=== PATIENT | male | born 1950 | race Caucasian/White ===

== ENCOUNTER 2020-03-16 11:36 | Inpatient (IN) ==
[2020-03-16] MEDS ORDERED: Dextrose Gel 15 GM/37.5 ML TUBE PO PRN ×2 (15:40)
[2020-03-16] MEDS ORDERED: D5% in Water 1,000 ML IVC PRN (15:40)
[2020-03-16] MEDS ORDERED: *HR* Dextrose 50 % in Water (Vial) 50 ML VIAL IVP PRN (15:40)
[2020-03-16] MEDS: Insulin LISPRO 300 UNITS/3 ML VIAL SQ SCH ×2 (17:20→21:47)
[2020-03-16] MEDS: *HR* OxyCODONE Immed Rel 5 MG TABLET PO PRN (17:27)
[2020-03-16] MEDS: Gabapentin 300 MG CAPSULE PO SCH (21:46)
[2020-03-16] MEDS: Nicotine 14 MG PATCH.TD24 TD SCH (21:48)
[2020-03-16] MEDS: *HR* Metformin 500 MG TABLET PO SCH (21:49)
[2020-03-16] MEDS: Budesonide/Formoterol 80/4.5 1 PUFF INH IH SCH (22:24)
[2020-03-17 05:25] LABS: Basophils % 0.2 %; Eosinophils # 0.1 K/mcL (0.0-0.6); Eosinophils % 0.4 %; Hemoglobin 8.8 g/dL (12.9-16.9); Immature Granulocytes % 0.4 % (0-4); Lymphocytes # 2.1 K/mcL (0.6-4.6); Lymphocytes % 13.7 %; Mean Corpuscular HGB Conc 33.8 g/dL (31.6-35.5); Mean Corpuscular Hemoglobin 30.8 pg (28.0-33.3); Mean Corpuscular Volume 90.9 fL (83.0-100.0); Mean Platelet Volume 9.6 fL (9.4-12.4); Monocytes # 1.2 K/mcL (0.0-1.3); Monocytes % 7.7 %; Neutrophils # 12.1 K/mcL (1.6-8.9); Platelet Count 240 K/mcL (140-400); Red Blood Count 2.86 M/mcL (4.19-5.50); Red Cell Distribution Width 14.9 % (11.5-14.5); Segmented Neutrophils % 77.6 %; White Blood Count 15.6 K/mcL (4.3-11.1)
[2020-03-17 05:44] LABS: BUN/Creatinine Ratio 28 (6-26); Blood Urea Nitrogen 18 mg/dL (8-23); Carbon Dioxide 32 mEq/L (23-29); Chloride 98 mEq/L (98-107); Glucose 234 mg/dL (70-105); Osmolality,Calculated 287 (280-300); Potassium 4.2 mEq/L (3.5-5.1); Sodium 134 mEq/L (136-145); eGFR For African Americans > 60 (> 60); eGFR For Non-African Americans > 60 (> 60)
[2020-03-17] MEDS: Nicotine 14 MG PATCH.TD24 TD SCH (08:14)
[2020-03-17] MEDS: *HR* Metformin 500 MG TABLET PO SCH ×2 (08:15→17:07)
[2020-03-17] MEDS: Gabapentin 300 MG CAPSULE PO SCH ×2 (08:15→20:00)
[2020-03-17] MEDS: predniSONE 1 MG TABLET PO SCH (08:15)
[2020-03-17] MEDS: Isosorbide MONOnitrate (24 HR) 30 MG TAB.ER.24H PO SCH (08:16)
[2020-03-17] MEDS: Cholecalciferol (D-3) 1,000 UNIT (25MCG) TABLET PO SCH (08:16)
[2020-03-17] MEDS: Insulin LISPRO 300 UNITS/3 ML VIAL SQ SCH ×4 (08:22→20:03)
[2020-03-17] MEDS: Insulin DETEMIR 100 UNIT/ML X5UNITS SQ SCH (08:22)
[2020-03-17] MEDS ORDERED: Alendronate Sodium 70 MG PO SCH (09:00)
[2020-03-17] MEDS: Budesonide/Formoterol 80/4.5 1 PUFF INH IH SCH ×2 (10:39→20:52)
[2020-03-17] MEDS: *HR* OxyCODONE Immed Rel 5 MG TABLET PO PRN (20:01)
[2020-03-18] MEDS: *HR* OxyCODONE Immed Rel 5 MG TABLET PO PRN ×2 (04:37→12:32)
[2020-03-18] MEDS: Budesonide/Formoterol 80/4.5 1 PUFF INH IH SCH ×2 (07:34→21:02)
[2020-03-18] MEDS: Insulin LISPRO 300 UNITS/3 ML VIAL SQ SCH ×4 (08:49→21:48)
[2020-03-18] MEDS: Insulin DETEMIR 100 UNIT/ML X5UNITS SQ SCH (08:49)
[2020-03-18] MEDS: predniSONE 1 MG TABLET PO SCH (08:51)
[2020-03-18] MEDS: *HR* Metformin 500 MG TABLET PO SCH ×2 (08:51→17:40)
[2020-03-18] MEDS: Nicotine 14 MG PATCH.TD24 TD SCH (08:52)
[2020-03-18] MEDS: Cholecalciferol (D-3) 1,000 UNIT (25MCG) TABLET PO SCH (08:52)
[2020-03-18] MEDS: Gabapentin 300 MG CAPSULE PO SCH ×2 (08:52→21:36)
[2020-03-18] MEDS: Isosorbide MONOnitrate (24 HR) 30 MG TAB.ER.24H PO SCH (08:52)
[2020-03-18] MEDS: *HR* Enoxaparin 40 MG/0.4 ML SYRINGE SQ SCH (15:44)
[2020-03-18] MEDS: 0.9 % Sodium Chloride 1,000 ML IVC SCH (22:21)
[2020-03-19] MEDS: *HR* Enoxaparin 40 MG/0.4 ML SYRINGE SQ SCH (06:04)
[2020-03-19 06:10] LABS: Bilirubin,Urine Negative (Negative); Blood,Urine Negative (Negative); Clarity,Urine Clear (Clear); Glucose,Urine (UA) 500 mg/dL (Normal); Ketones,Urine Negative (Negative); Leukocyte Esterase,Urine Negative (Negative); Nitrite,Urine Negative (Negative); PH,Urine 7.5 pH Units (5.0-8.0); Protein,Urine Negative (Neg-Trace); Urobilinogen,Urine Normal (Normal)
[2020-03-19 06:22] LABS: Color,Urine Light Yellow (Yellow)
[2020-03-19] MEDS: Nicotine 14 MG PATCH.TD24 TD SCH (07:55)
[2020-03-19] MEDS: *HR* OxyCODONE Immed Rel 5 MG TABLET PO PRN ×2 (07:55→14:12)
[2020-03-19] MEDS: Cholecalciferol (D-3) 1,000 UNIT (25MCG) TABLET PO SCH (07:55)
[2020-03-19] MEDS: *HR* Metformin 500 MG TABLET PO SCH ×2 (07:56→17:01)
[2020-03-19] MEDS: Gabapentin 300 MG CAPSULE PO SCH ×2 (07:56→21:00)
[2020-03-19] MEDS: predniSONE 1 MG TABLET PO SCH (07:56)
[2020-03-19] MEDS: Insulin LISPRO 300 UNITS/3 ML VIAL SQ SCH ×4 (07:57→21:01)
[2020-03-19] MEDS: Isosorbide MONOnitrate (24 HR) 30 MG TAB.ER.24H PO SCH (07:59)
[2020-03-19] MEDS: 0.9 % Sodium Chloride 1,000 ML IVC SCH (07:59)
[2020-03-19 08:10] LABS: Basophils # 0.1 K/mcL (0.0-0.2); Basophils % 0.5 %; Eosinophils # 0.1 K/mcL (0.0-0.6); Eosinophils % 1.1 %; Hematocrit 26.7 % (37.5-50.1); Hemoglobin 8.8 g/dL (12.9-16.9); Immature Granulocytes % 0.4 % (0-4); Lymphocytes # 1.9 K/mcL (0.6-4.6); Lymphocytes % 18.6 %; Mean Corpuscular Hemoglobin 30.4 pg (28.0-33.3); Mean Corpuscular Volume 92.4 fL (83.0-100.0); Mean Platelet Volume 9.1 fL (9.4-12.4); Monocytes # 0.7 K/mcL (0.0-1.3); Monocytes % 7.2 %; Neutrophils # 7.4 K/mcL (1.6-8.9); Platelet Count 367 K/mcL (140-400); Red Blood Count 2.89 M/mcL (4.19-5.50); Red Cell Distribution Width 15.1 % (11.5-14.5); Segmented Neutrophils % 72.2 %; White Blood Count 10.2 K/mcL (4.3-11.1)
[2020-03-19] MEDS: Budesonide/Formoterol 80/4.5 1 PUFF INH IH SCH ×2 (08:14→21:07)
[2020-03-19 08:28] LABS: BUN/Creatinine Ratio 27 (6-26); Blood Urea Nitrogen 17 mg/dL (8-23); Calcium 8.1 mg/dL (8.6-10.3); Carbon Dioxide 33 mEq/L (23-29); Chloride 95 mEq/L (98-107); Glucose 322 mg/dL (70-105); Osmolality,Calculated 290 (280-300); Potassium 4.3 mEq/L (3.5-5.1); Sodium 133 mEq/L (136-145); eGFR For African Americans > 60 (> 60); eGFR For Non-African Americans > 60 (> 60)
[2020-03-20] MEDS: *HR* OxyCODONE Immed Rel 5 MG TABLET PO PRN ×3 (05:56→19:58)
[2020-03-20] MEDS: *HR* Enoxaparin 40 MG/0.4 ML SYRINGE SQ SCH (05:57)
[2020-03-20] MEDS: Gabapentin 300 MG CAPSULE PO SCH ×2 (08:10→19:58)
[2020-03-20] MEDS: *HR* Metformin 500 MG TABLET PO SCH ×2 (08:10→17:00)
[2020-03-20] MEDS: predniSONE 1 MG TABLET PO SCH (08:11)
[2020-03-20] MEDS: Isosorbide MONOnitrate (24 HR) 30 MG TAB.ER.24H PO SCH (08:11)
[2020-03-20] MEDS: Cholecalciferol (D-3) 1,000 UNIT (25MCG) TABLET PO SCH (08:11)
[2020-03-20] MEDS: Insulin LISPRO 300 UNITS/3 ML VIAL SQ SCH ×4 (08:15→19:59)
[2020-03-20] MEDS: Nicotine 14 MG PATCH.TD24 TD SCH (08:21)
[2020-03-20] MEDS: Budesonide/Formoterol 80/4.5 1 PUFF INH IH SCH ×2 (10:16→21:48)
[2020-03-21] MEDS: *HR* Enoxaparin 40 MG/0.4 ML SYRINGE SQ SCH (06:03)
[2020-03-21] MEDS: Cholecalciferol (D-3) 1,000 UNIT (25MCG) TABLET PO SCH (09:12)
[2020-03-21] MEDS: Nicotine 14 MG PATCH.TD24 TD SCH (09:12)
[2020-03-21] MEDS: Gabapentin 300 MG CAPSULE PO SCH ×2 (09:12→19:57)
[2020-03-21] MEDS: *HR* Metformin 500 MG TABLET PO SCH ×2 (09:13→17:04)
[2020-03-21] MEDS: predniSONE 1 MG TABLET PO SCH (09:13)
[2020-03-21] MEDS: *HR* OxyCODONE Immed Rel 5 MG TABLET PO PRN ×2 (09:14→19:57)
[2020-03-21] MEDS: Isosorbide MONOnitrate (24 HR) 30 MG TAB.ER.24H PO SCH (09:14)
[2020-03-21] MEDS: Insulin LISPRO 300 UNITS/3 ML VIAL SQ SCH ×4 (09:15→19:58)
[2020-03-21] MEDS: Budesonide/Formoterol 80/4.5 1 PUFF INH IH SCH ×2 (10:12→20:43)
[2020-03-22] MEDS: *HR* OxyCODONE Immed Rel 5 MG TABLET PO PRN ×4 (02:03→21:05)
[2020-03-22] MEDS: *HR* Enoxaparin 40 MG/0.4 ML SYRINGE SQ SCH (05:50)
[2020-03-22] MEDS: predniSONE 1 MG TABLET PO SCH (08:19)
[2020-03-22] MEDS: Cholecalciferol (D-3) 1,000 UNIT (25MCG) TABLET PO SCH (08:19)
[2020-03-22] MEDS: Isosorbide MONOnitrate (24 HR) 30 MG TAB.ER.24H PO SCH (08:19)
[2020-03-22] MEDS: *HR* Metformin 500 MG TABLET PO SCH ×2 (08:19→17:44)
[2020-03-22] MEDS: Gabapentin 300 MG CAPSULE PO SCH ×2 (08:19→21:05)
[2020-03-22] MEDS: Insulin LISPRO 300 UNITS/3 ML VIAL SQ SCH ×4 (08:20→21:05)
[2020-03-22] MEDS: Nicotine 14 MG PATCH.TD24 TD SCH (08:26)
[2020-03-22] MEDS: Budesonide/Formoterol 80/4.5 1 PUFF INH IH SCH ×2 (09:24→22:12)
[2020-03-22] MEDS ORDERED: Insulin DETEMIR 100 UNIT/ML X5UNITS SQ SCH (21:00)
[2020-03-23] MEDS: *HR* Enoxaparin 40 MG/0.4 ML SYRINGE SQ SCH (06:04)
[2020-03-23] MEDS: Insulin LISPRO 300 UNITS/3 ML VIAL SQ SCH ×4 (07:33→20:53)
[2020-03-23] MEDS: Budesonide/Formoterol 80/4.5 1 PUFF INH IH SCH ×2 (07:47→22:24)
[2020-03-23] MEDS: Isosorbide MONOnitrate (24 HR) 30 MG TAB.ER.24H PO SCH (08:14)
[2020-03-23] MEDS: Cholecalciferol (D-3) 1,000 UNIT (25MCG) TABLET PO SCH (08:14)
[2020-03-23] MEDS: Gabapentin 300 MG CAPSULE PO SCH ×2 (08:14→20:52)
[2020-03-23] MEDS: *HR* Metformin 500 MG TABLET PO SCH ×2 (08:15→17:42)
[2020-03-23] MEDS: Nicotine 14 MG PATCH.TD24 TD SCH (08:15)
[2020-03-23] MEDS: predniSONE 1 MG TABLET PO SCH (08:15)
[2020-03-23] MEDS: *HR* OxyCODONE Immed Rel 5 MG TABLET PO PRN ×2 (08:21→20:53)
[2020-03-24] MEDS: *HR* Enoxaparin 40 MG/0.4 ML SYRINGE SQ SCH (06:26)
[2020-03-24] MEDS: Budesonide/Formoterol 80/4.5 1 PUFF INH IH SCH ×2 (08:24→22:07)
[2020-03-24] MEDS: *HR* Metformin 500 MG TABLET PO SCH ×2 (08:37→16:51)
[2020-03-24] MEDS: Nicotine 14 MG PATCH.TD24 TD SCH (08:37)
[2020-03-24] MEDS: Cholecalciferol (D-3) 1,000 UNIT (25MCG) TABLET PO SCH (08:37)
[2020-03-24] MEDS: predniSONE 1 MG TABLET PO SCH (08:37)
[2020-03-24] MEDS: Isosorbide MONOnitrate (24 HR) 30 MG TAB.ER.24H PO SCH (08:37)
[2020-03-24] MEDS: Gabapentin 300 MG CAPSULE PO SCH ×2 (08:37→20:40)
[2020-03-24] MEDS: Insulin LISPRO 300 UNITS/3 ML VIAL SQ SCH ×4 (08:38→20:42)
[2020-03-24] MEDS: *HR* OxyCODONE Immed Rel 5 MG TABLET PO PRN ×2 (13:08→18:14)
[2020-03-25] MEDS: *HR* Enoxaparin 40 MG/0.4 ML SYRINGE SQ SCH (06:50)
[2020-03-25 07:29] LABS: Hematocrit 28.2 % (37.5-50.1); Hemoglobin 9.1 g/dL (12.9-16.9); Mean Corpuscular HGB Conc 32.3 g/dL (31.6-35.5); Mean Corpuscular Hemoglobin 30.3 pg (28.0-33.3); Mean Platelet Volume 9.1 fL (9.4-12.4); Platelet Count 523 K/mcL (140-400); Red Cell Distribution Width 15.5 % (11.5-14.5); White Blood Count 10.5 K/mcL (4.3-11.1)
[2020-03-25 07:38] LABS: BUN/Creatinine Ratio 33 (6-26); Blood Urea Nitrogen 20 mg/dL (8-23); Calcium 8.4 mg/dL (8.6-10.3); Carbon Dioxide 35 mEq/L (23-29); Chloride 93 mEq/L (98-107); Glucose 326 mg/dL (70-105); Osmolality,Calculated 291 (280-300); Potassium 4.4 mEq/L (3.5-5.1); Sodium 133 mEq/L (136-145); eGFR For African Americans > 60 (> 60); eGFR For Non-African Americans > 60 (> 60)
[2020-03-25] MEDS: Budesonide/Formoterol 80/4.5 1 PUFF INH IH SCH ×2 (07:45→21:54)
[2020-03-25] MEDS: predniSONE 1 MG TABLET PO SCH (08:29)
[2020-03-25] MEDS: Gabapentin 300 MG CAPSULE PO SCH ×2 (08:29→20:28)
[2020-03-25] MEDS: Nicotine 14 MG PATCH.TD24 TD SCH (08:29)
[2020-03-25] MEDS: *HR* Metformin 500 MG TABLET PO SCH ×2 (08:29→16:14)
[2020-03-25] MEDS: Cholecalciferol (D-3) 1,000 UNIT (25MCG) TABLET PO SCH (08:30)
[2020-03-25] MEDS: Isosorbide MONOnitrate (24 HR) 30 MG TAB.ER.24H PO SCH (08:30)
[2020-03-25] MEDS: Insulin LISPRO 300 UNITS/3 ML VIAL SQ SCH ×4 (08:35→20:26)
[2020-03-25] MEDS: *HR* OxyCODONE Immed Rel 5 MG TABLET PO PRN (20:27)
[2020-03-26] MEDS: *HR* OxyCODONE Immed Rel 5 MG TABLET PO PRN ×2 (02:31→17:46)
[2020-03-26] MEDS: *HR* Enoxaparin 40 MG/0.4 ML SYRINGE SQ SCH (05:29)
[2020-03-26] MEDS: Gabapentin 300 MG CAPSULE PO SCH ×2 (07:50→20:18)
[2020-03-26] MEDS: *HR* Metformin 500 MG TABLET PO SCH ×2 (07:50→17:44)
[2020-03-26] MEDS: Cholecalciferol (D-3) 1,000 UNIT (25MCG) TABLET PO SCH (07:51)
[2020-03-26] MEDS: Isosorbide MONOnitrate (24 HR) 30 MG TAB.ER.24H PO SCH (07:51)
[2020-03-26] MEDS: predniSONE 1 MG TABLET PO SCH (07:51)
[2020-03-26] MEDS: Insulin LISPRO 300 UNITS/3 ML VIAL SQ SCH ×4 (07:51→20:19)
[2020-03-26] MEDS: Nicotine 14 MG PATCH.TD24 TD SCH (07:52)
[2020-03-26] MEDS: Budesonide/Formoterol 80/4.5 1 PUFF INH IH SCH ×2 (10:52→22:48)
[2020-03-26] MEDS: ADALIMUMAB 40 MG SQ SCH (17:38)
[2020-03-26] MEDS: *HR* Methotrexate 2.5 MG TABLET PO SCH (17:44)
[2020-03-27] MEDS: *HR* Enoxaparin 40 MG/0.4 ML SYRINGE SQ SCH (06:11)
[2020-03-27] MEDS: Isosorbide MONOnitrate (24 HR) 30 MG TAB.ER.24H PO SCH (08:24)
[2020-03-27] MEDS: predniSONE 1 MG TABLET PO SCH (08:24)
[2020-03-27] MEDS: Nicotine 14 MG PATCH.TD24 TD SCH (08:24)
[2020-03-27] MEDS: Cholecalciferol (D-3) 1,000 UNIT (25MCG) TABLET PO SCH (08:25)
[2020-03-27] MEDS: Gabapentin 300 MG CAPSULE PO SCH ×2 (08:25→20:01)
[2020-03-27] MEDS: *HR* Metformin 500 MG TABLET PO SCH ×2 (08:25→17:20)
[2020-03-27] MEDS: Insulin LISPRO 300 UNITS/3 ML VIAL SQ SCH ×4 (08:28→20:04)
[2020-03-27] MEDS: Budesonide/Formoterol 80/4.5 1 PUFF INH IH SCH ×2 (11:15→22:43)
[2020-03-27] MEDS: *HR* OxyCODONE Immed Rel 5 MG TABLET PO PRN (20:01)
[2020-03-28] MEDS: Melatonin 3 MG TABLET PO PRN ×2 (03:09→19:56)
[2020-03-28] MEDS: *HR* Enoxaparin 40 MG/0.4 ML SYRINGE SQ SCH (06:28)
[2020-03-28] MEDS: Budesonide/Formoterol 80/4.5 1 PUFF INH IH SCH ×2 (09:29→22:25)
[2020-03-28] MEDS: Insulin LISPRO 300 UNITS/3 ML VIAL SQ SCH ×4 (09:45→19:56)
[2020-03-28] MEDS: *HR* OxyCODONE Immed Rel 5 MG TABLET PO PRN ×2 (09:46→19:55)
[2020-03-28] MEDS: Gabapentin 300 MG CAPSULE PO SCH ×2 (09:46→19:55)
[2020-03-28] MEDS: predniSONE 1 MG TABLET PO SCH (09:46)
[2020-03-28] MEDS: Cholecalciferol (D-3) 1,000 UNIT (25MCG) TABLET PO SCH (09:46)
[2020-03-28] MEDS: Isosorbide MONOnitrate (24 HR) 30 MG TAB.ER.24H PO SCH (09:47)
[2020-03-28] MEDS: Nicotine 14 MG PATCH.TD24 TD SCH (09:47)
[2020-03-28] MEDS: *HR* Metformin 500 MG TABLET PO SCH ×2 (09:47→17:20)
[2020-03-29] MEDS: Ondansetron ODT 4 MG TAB.RAPDIS SL PRN (00:14)
[2020-03-29] MEDS: *HR* OxyCODONE Immed Rel 5 MG TABLET PO PRN ×3 (02:36→18:06)
[2020-03-29] MEDS: *HR* Enoxaparin 40 MG/0.4 ML SYRINGE SQ SCH (05:20)
[2020-03-29] MEDS: Insulin LISPRO 300 UNITS/3 ML VIAL SQ SCH ×4 (08:31→20:06)
[2020-03-29] MEDS: *HR* Metformin 500 MG TABLET PO SCH ×2 (08:32→18:06)
[2020-03-29] MEDS: Isosorbide MONOnitrate (24 HR) 30 MG TAB.ER.24H PO SCH (08:34)
[2020-03-29] MEDS: Gabapentin 300 MG CAPSULE PO SCH ×2 (08:35→20:07)
[2020-03-29] MEDS: predniSONE 1 MG TABLET PO SCH (08:36)
[2020-03-29] MEDS: Nicotine 14 MG PATCH.TD24 TD SCH (08:36)
[2020-03-29] MEDS: Cholecalciferol (D-3) 1,000 UNIT (25MCG) TABLET PO SCH (08:58)
[2020-03-29] MEDS: Budesonide/Formoterol 80/4.5 1 PUFF INH IH SCH ×2 (09:22→21:29)
[2020-03-30] MEDS: *HR* OxyCODONE Immed Rel 5 MG TABLET PO PRN ×2 (05:30→12:31)
[2020-03-30] MEDS: *HR* Enoxaparin 40 MG/0.4 ML SYRINGE SQ SCH (05:31)
[2020-03-30] MEDS: predniSONE 1 MG TABLET PO SCH (08:02)
[2020-03-30] MEDS: *HR* Metformin 500 MG TABLET PO SCH ×2 (08:03→17:01)
[2020-03-30] MEDS: Cholecalciferol (D-3) 1,000 UNIT (25MCG) TABLET PO SCH (08:03)
[2020-03-30] MEDS: Gabapentin 300 MG CAPSULE PO SCH ×2 (08:04→20:04)
[2020-03-30] MEDS: Nicotine 14 MG PATCH.TD24 TD SCH (08:04)
[2020-03-30] MEDS: Isosorbide MONOnitrate (24 HR) 30 MG TAB.ER.24H PO SCH (08:04)
[2020-03-30] MEDS: Insulin LISPRO 300 UNITS/3 ML VIAL SQ SCH ×4 (08:05→20:05)
[2020-03-30] MEDS: Budesonide/Formoterol 80/4.5 1 PUFF INH IH SCH ×2 (10:47→20:48)
[2020-03-31] MEDS: *HR* Enoxaparin 40 MG/0.4 ML SYRINGE SQ SCH (06:30)
[2020-03-31] MEDS: Gabapentin 300 MG CAPSULE PO SCH ×2 (08:56→21:02)
[2020-03-31] MEDS: *HR* Metformin 500 MG TABLET PO SCH ×2 (08:56→16:37)
[2020-03-31] MEDS: predniSONE 1 MG TABLET PO SCH (08:57)
[2020-03-31] MEDS: Nicotine 14 MG PATCH.TD24 TD SCH (08:57)
[2020-03-31] MEDS: Isosorbide MONOnitrate (24 HR) 30 MG TAB.ER.24H PO SCH (08:57)
[2020-03-31] MEDS: Cholecalciferol (D-3) 1,000 UNIT (25MCG) TABLET PO SCH (08:58)
[2020-03-31] MEDS: Insulin LISPRO 300 UNITS/3 ML VIAL SQ SCH ×4 (09:01→21:03)
[2020-03-31] MEDS: Budesonide/Formoterol 80/4.5 1 PUFF INH IH SCH ×2 (10:23→20:57)
[2020-03-31] MEDS: Melatonin 3 MG TABLET PO PRN (21:02)
[2020-03-31] MEDS: Insulin DETEMIR 100 UNIT/ML X5UNITS SQ SCH (21:03)
[2020-04-01] MEDS: *HR* OxyCODONE Immed Rel 5 MG TABLET PO PRN ×3 (02:13→16:02)
[2020-04-01] MEDS: *HR* Enoxaparin 40 MG/0.4 ML SYRINGE SQ SCH (06:00)
[2020-04-01] MEDS: Insulin LISPRO 300 UNITS/3 ML VIAL SQ SCH ×4 (07:28→21:04)
[2020-04-01] MEDS: Budesonide/Formoterol 80/4.5 1 PUFF INH IH SCH ×2 (09:01→22:08)
[2020-04-01] MEDS: Nicotine 14 MG PATCH.TD24 TD SCH (09:07)
[2020-04-01] MEDS: Gabapentin 300 MG CAPSULE PO SCH ×2 (09:08→21:14)
[2020-04-01] MEDS: Isosorbide MONOnitrate (24 HR) 30 MG TAB.ER.24H PO SCH (09:09)
[2020-04-01] MEDS: *HR* Metformin 500 MG TABLET PO SCH ×2 (09:09→16:02)
[2020-04-01] MEDS: Cholecalciferol (D-3) 1,000 UNIT (25MCG) TABLET PO SCH (09:09)
[2020-04-01] MEDS: Insulin DETEMIR 100 UNIT/ML X5UNITS SQ SCH (09:13)
[2020-04-01] MEDS: Ondansetron ODT 4 MG TAB.RAPDIS SL PRN (16:03)
[2020-04-01] MEDS: Melatonin 3 MG TABLET PO PRN (21:14)
[2020-04-02] MEDS: *HR* Enoxaparin 40 MG/0.4 ML SYRINGE SQ SCH (06:54)
[2020-04-02] MEDS: *HR* OxyCODONE Immed Rel 5 MG TABLET PO PRN ×3 (06:54→21:56)
[2020-04-02] MEDS: Gabapentin 300 MG CAPSULE PO SCH ×2 (07:41→21:55)
[2020-04-02] MEDS: Isosorbide MONOnitrate (24 HR) 30 MG TAB.ER.24H PO SCH (07:41)
[2020-04-02] MEDS: Cholecalciferol (D-3) 1,000 UNIT (25MCG) TABLET PO SCH (07:41)
[2020-04-02] MEDS: *HR* Metformin 500 MG TABLET PO SCH ×2 (07:41→16:39)
[2020-04-02] MEDS: Nicotine 14 MG PATCH.TD24 TD SCH (07:42)
[2020-04-02] MEDS: Insulin LISPRO 300 UNITS/3 ML VIAL SQ SCH ×4 (07:43→21:56)
[2020-04-02] MEDS: Budesonide/Formoterol 80/4.5 1 PUFF INH IH SCH ×2 (08:23→21:52)
[2020-04-02] MEDS: *HR* Methotrexate 2.5 MG TABLET PO SCH (13:52)
[2020-04-02] MEDS: Melatonin 3 MG TABLET PO PRN (21:55)
[2020-04-03] MEDS: *HR* OxyCODONE Immed Rel 5 MG TABLET PO PRN ×2 (06:01→13:40)
[2020-04-03] MEDS: *HR* Enoxaparin 40 MG/0.4 ML SYRINGE SQ SCH (06:01)
[2020-04-03] MEDS: *HR* Metformin 500 MG TABLET PO SCH ×2 (07:51→16:24)
[2020-04-03] MEDS: Gabapentin 300 MG CAPSULE PO SCH ×2 (07:51→20:50)
[2020-04-03] MEDS: Cholecalciferol (D-3) 1,000 UNIT (25MCG) TABLET PO SCH (07:51)
[2020-04-03] MEDS: Insulin LISPRO 300 UNITS/3 ML VIAL SQ SCH ×4 (07:51→20:51)
[2020-04-03] MEDS: Isosorbide MONOnitrate (24 HR) 30 MG TAB.ER.24H PO SCH (07:51)
[2020-04-03] MEDS: Nicotine 14 MG PATCH.TD24 TD SCH (08:01)
[2020-04-03 09:05] LABS: Basophils # 0.1 K/mcL (0.0-0.2); Basophils % 0.4 %; Eosinophils # 0.1 K/mcL (0.0-0.6); Eosinophils % 0.9 %; Hematocrit 29.6 % (37.5-50.1); Hemoglobin 9.6 g/dL (12.9-16.9); Immature Granulocytes % 0.4 % (0-4); Lymphocytes # 1.9 K/mcL (0.6-4.6); Lymphocytes % 13.1 %; Mean Corpuscular HGB Conc 32.4 g/dL (31.6-35.5); Mean Corpuscular Hemoglobin 30.4 pg (28.0-33.3); Mean Corpuscular Volume 93.7 fL (83.0-100.0); Mean Platelet Volume 9.9 fL (9.4-12.4); Monocytes # 0.7 K/mcL (0.0-1.3); Monocytes % 4.8 %; Platelet Count 318 K/mcL (140-400); Red Blood Count 3.16 M/mcL (4.19-5.50); Red Cell Distribution Width 15.8 % (11.5-14.5); Segmented Neutrophils % 80.4 %; White Blood Count 14.5 K/mcL (4.3-11.1)
[2020-04-03 09:06] LABS: Neutrophils # 11.7 K/mcL (1.6-8.9)
[2020-04-03 09:15] LABS: BUN/Creatinine Ratio 35 (6-26); Blood Urea Nitrogen 19 mg/dL (8-23); Calcium 8.6 mg/dL (8.6-10.3); Carbon Dioxide 34 mEq/L (23-29); Chloride 94 mEq/L (98-107); Glucose 208 mg/dL (70-105); Osmolality,Calculated 286 (280-300); Potassium 3.9 mEq/L (3.5-5.1); Sodium 134 mEq/L (136-145); eGFR For African Americans > 60 (> 60); eGFR For Non-African Americans > 60 (> 60)
[2020-04-03] MEDS: Budesonide/Formoterol 80/4.5 1 PUFF INH IH SCH ×2 (10:03→20:57)
[2020-04-03] MEDS: predniSONE 1 MG TABLET PO SCH (16:24)
[2020-04-04] MEDS: *HR* Enoxaparin 40 MG/0.4 ML SYRINGE SQ SCH (05:14)
[2020-04-04] MEDS: Gabapentin 300 MG CAPSULE PO SCH ×2 (07:17→19:51)
[2020-04-04] MEDS: *HR* Metformin 500 MG TABLET PO SCH ×2 (07:17→17:05)
[2020-04-04] MEDS: Isosorbide MONOnitrate (24 HR) 30 MG TAB.ER.24H PO SCH (07:17)
[2020-04-04] MEDS: Nicotine 14 MG PATCH.TD24 TD SCH (07:18)
[2020-04-04] MEDS: *HR* OxyCODONE Immed Rel 5 MG TABLET PO PRN ×2 (07:18→22:55)
[2020-04-04] MEDS: predniSONE 1 MG TABLET PO SCH (07:18)
[2020-04-04] MEDS: Cholecalciferol (D-3) 1,000 UNIT (25MCG) TABLET PO SCH (07:18)
[2020-04-04] MEDS: Insulin LISPRO 300 UNITS/3 ML VIAL SQ SCH ×4 (07:18→19:51)
[2020-04-04] MEDS: Budesonide/Formoterol 80/4.5 1 PUFF INH IH SCH ×2 (10:39→20:41)
[2020-04-05] MEDS: *HR* Enoxaparin 40 MG/0.4 ML SYRINGE SQ SCH (06:07)
[2020-04-05] MEDS: *HR* Metformin 500 MG TABLET PO SCH ×2 (08:57→17:18)
[2020-04-05] MEDS: Nicotine 14 MG PATCH.TD24 TD SCH (08:57)
[2020-04-05] MEDS: Isosorbide MONOnitrate (24 HR) 30 MG TAB.ER.24H PO SCH (08:57)
[2020-04-05] MEDS: Cholecalciferol (D-3) 1,000 UNIT (25MCG) TABLET PO SCH (08:58)
[2020-04-05] MEDS: *HR* OxyCODONE Immed Rel 5 MG TABLET PO PRN ×2 (08:58→21:14)
[2020-04-05] MEDS: predniSONE 1 MG TABLET PO SCH (08:58)
[2020-04-05] MEDS: Gabapentin 300 MG CAPSULE PO SCH ×2 (08:58→21:14)
[2020-04-05] MEDS: Insulin LISPRO 300 UNITS/3 ML VIAL SQ SCH ×4 (09:05→21:15)
[2020-04-05] MEDS: Budesonide/Formoterol 80/4.5 1 PUFF INH IH SCH ×2 (11:25→20:48)
[2020-04-06] MEDS: *HR* Enoxaparin 40 MG/0.4 ML SYRINGE SQ SCH (06:22)
[2020-04-06] MEDS: *HR* OxyCODONE Immed Rel 5 MG TABLET PO PRN ×3 (06:22→21:15)
[2020-04-06] MEDS: Nicotine 14 MG PATCH.TD24 TD SCH (08:38)
[2020-04-06] MEDS: Gabapentin 300 MG CAPSULE PO SCH ×2 (08:38→21:15)
[2020-04-06] MEDS: *HR* Metformin 500 MG TABLET PO SCH ×2 (08:39→16:52)
[2020-04-06] MEDS: Cholecalciferol (D-3) 1,000 UNIT (25MCG) TABLET PO SCH (08:39)
[2020-04-06] MEDS: predniSONE 1 MG TABLET PO SCH (08:39)
[2020-04-06] MEDS: Isosorbide MONOnitrate (24 HR) 30 MG TAB.ER.24H PO SCH (08:40)
[2020-04-06] MEDS: Insulin LISPRO 300 UNITS/3 ML VIAL SQ SCH ×4 (08:40→21:17)
[2020-04-06] MEDS: Budesonide/Formoterol 80/4.5 1 PUFF INH IH SCH ×2 (08:51→22:52)
[2020-04-06] MEDS: Melatonin 3 MG TABLET PO PRN (21:15)
[2020-04-07] MEDS: *HR* Enoxaparin 40 MG/0.4 ML SYRINGE SQ SCH (05:40)
[2020-04-07] MEDS: *HR* Metformin 500 MG TABLET PO SCH ×2 (08:24→17:09)
[2020-04-07] MEDS: Gabapentin 300 MG CAPSULE PO SCH ×2 (08:24→20:27)
[2020-04-07] MEDS: Cholecalciferol (D-3) 1,000 UNIT (25MCG) TABLET PO SCH (08:24)
[2020-04-07] MEDS: Nicotine 14 MG PATCH.TD24 TD SCH (08:25)
[2020-04-07] MEDS: Isosorbide MONOnitrate (24 HR) 30 MG TAB.ER.24H PO SCH (08:25)
[2020-04-07] MEDS: *HR* OxyCODONE Immed Rel 5 MG TABLET PO PRN ×2 (08:25→20:27)
[2020-04-07] MEDS: predniSONE 1 MG TABLET PO SCH (08:25)
[2020-04-07] MEDS: Insulin LISPRO 300 UNITS/3 ML VIAL SQ SCH ×4 (08:30→20:28)
[2020-04-07] MEDS: Budesonide/Formoterol 80/4.5 1 PUFF INH IH SCH ×2 (09:24→21:43)
[2020-04-07] MEDS: Melatonin 3 MG TABLET PO PRN (20:27)
[2020-04-08] MEDS: *HR* OxyCODONE Immed Rel 5 MG TABLET PO PRN ×2 (06:51→20:15)
[2020-04-08] MEDS: *HR* Enoxaparin 40 MG/0.4 ML SYRINGE SQ SCH (06:52)
[2020-04-08] MEDS: Cholecalciferol (D-3) 1,000 UNIT (25MCG) TABLET PO SCH (08:54)
[2020-04-08] MEDS: *HR* Metformin 500 MG TABLET PO SCH ×2 (08:54→16:49)
[2020-04-08] MEDS: predniSONE 1 MG TABLET PO SCH (08:54)
[2020-04-08] MEDS: Gabapentin 300 MG CAPSULE PO SCH ×2 (08:54→20:14)
[2020-04-08] MEDS: Isosorbide MONOnitrate (24 HR) 30 MG TAB.ER.24H PO SCH (08:54)
[2020-04-08] MEDS: Nicotine 14 MG PATCH.TD24 TD SCH (08:59)
[2020-04-08] MEDS: Insulin LISPRO 300 UNITS/3 ML VIAL SQ SCH ×4 (08:59→20:16)
[2020-04-08] MEDS: Budesonide/Formoterol 80/4.5 1 PUFF INH IH SCH ×2 (10:52→21:14)
[2020-04-08] MEDS: Melatonin 3 MG TABLET PO PRN (20:15)
[2020-04-09] MEDS: *HR* OxyCODONE Immed Rel 5 MG TABLET PO PRN ×2 (05:19→21:50)
[2020-04-09] MEDS: *HR* Enoxaparin 40 MG/0.4 ML SYRINGE SQ SCH (05:19)
[2020-04-09 08:17] LABS: Hematocrit 28.6 % (37.5-50.1); Hemoglobin 9.6 g/dL (12.9-16.9); Mean Corpuscular HGB Conc 33.6 g/dL (31.6-35.5); Mean Corpuscular Hemoglobin 31.1 pg (28.0-33.3); Mean Corpuscular Volume 92.6 fL (83.0-100.0); Mean Platelet Volume 9.2 fL (9.4-12.4); Platelet Count 314 K/mcL (140-400); Red Blood Count 3.09 M/mcL (4.19-5.50); White Blood Count 8.5 K/mcL (4.3-11.1)
[2020-04-09 08:31] LABS: BUN/Creatinine Ratio 37 (6-26); Blood Urea Nitrogen 17 mg/dL (8-23); Carbon Dioxide 33 mEq/L (23-29); Chloride 93 mEq/L (98-107); Glucose 247 mg/dL (70-105); Osmolality,Calculated 286 (280-300); Sodium 133 mEq/L (136-145); eGFR For African Americans > 60 (> 60); eGFR For Non-African Americans > 60 (> 60)
[2020-04-09] MEDS: Gabapentin 300 MG CAPSULE PO SCH ×2 (08:53→21:46)
[2020-04-09] MEDS: *HR* Metformin 500 MG TABLET PO SCH ×2 (08:54→18:13)
[2020-04-09] MEDS: Isosorbide MONOnitrate (24 HR) 30 MG TAB.ER.24H PO SCH (08:54)
[2020-04-09] MEDS: predniSONE 1 MG TABLET PO SCH (08:54)
[2020-04-09] MEDS: Cholecalciferol (D-3) 1,000 UNIT (25MCG) TABLET PO SCH (08:54)
[2020-04-09] MEDS: Insulin LISPRO 300 UNITS/3 ML VIAL SQ SCH ×4 (08:55→21:47)
[2020-04-09] MEDS: Nicotine 14 MG PATCH.TD24 TD SCH (08:55)
[2020-04-09] MEDS: Budesonide/Formoterol 80/4.5 1 PUFF INH IH SCH ×2 (10:13→21:40)
[2020-04-09] MEDS ORDERED: *HR* Methotrexate 2.5 MG TABLET PO SCH (14:30)
[2020-04-09] MEDS: ADALIMUMAB 40 MG SQ SCH (18:14)
[2020-04-09] MEDS: *HR* Methotrexate 2.5 MG TABLET PO SCH (18:20)
[2020-04-09] MEDS: Melatonin 3 MG TABLET PO PRN (21:46)
[2020-04-10] MEDS: *HR* Enoxaparin 40 MG/0.4 ML SYRINGE SQ SCH (05:21)
[2020-04-10] MEDS: *HR* OxyCODONE Immed Rel 5 MG TABLET PO PRN ×2 (07:42→14:54)
[2020-04-10] MEDS: *HR* Metformin 500 MG TABLET PO SCH ×2 (07:42→17:24)
[2020-04-10] MEDS: Gabapentin 300 MG CAPSULE PO SCH ×2 (07:43→19:59)
[2020-04-10] MEDS: Cholecalciferol (D-3) 1,000 UNIT (25MCG) TABLET PO SCH (07:43)
[2020-04-10] MEDS: Isosorbide MONOnitrate (24 HR) 30 MG TAB.ER.24H PO SCH (07:43)
[2020-04-10] MEDS: predniSONE 1 MG TABLET PO SCH (07:43)
[2020-04-10] MEDS: Nicotine 14 MG PATCH.TD24 TD SCH (07:44)
[2020-04-10] MEDS: Insulin LISPRO 300 UNITS/3 ML VIAL SQ SCH ×4 (07:47→19:59)
[2020-04-10] MEDS: Budesonide/Formoterol 80/4.5 1 PUFF INH IH SCH (10:55)
[2020-04-10 19:23] VITALS: BP 104/66
== END 2020-04-10 21:40 | disposition other institution (70) | DRG 559 ==
LOC: INPPIK 13:23
PROVIDERS: ADMIT Family Medicine; ATTEND Family Medicine